=== PATIENT | female | born 1940 | race Caucasian/White ===

== ENCOUNTER 2022-08-01 14:58 | Inpatient (IN) | payer MEDICARE ==
[2022-08-01] MEDS ORDERED: ISOVUE-370 76%-LOCM 1 ML ONE (15:07)
[2022-08-01] MEDS ORDERED: Ipratropium/Albuterol 3 ML NEB ONE (15:32)
[2022-08-01 16:13] LABS: SARS-CoV-2 NAA Rapid Test Not Detected (NotDetected)
[2022-08-01 16:46] LABS: #Lymphocytes 0.9 thou/uL (1.20-3.40); #Monocytes 0.4 thou/uL (0.11-0.59); %Basophils 0.4 % (0.0-1.0); %Eosinophils 0.3 % (0.0-10.0); %Lymphocytes 12.8 % (21.0-51.0); %Neutrophils 81.5 % (42.0-75.0); Hemoglobin 14.9 g/dL (12.0-16.0); Mean Corpuscular HGB CONC 31.9 g/dL (32.0-36.0); Mean Corpuscular Hemoglobin 30.9 pg (27.0-31.0); Mean Corpuscular Volume 96.8 fl (78.0-98.0); Mean Platelet Volume 8.1 fL (7.4-10.4); Platelet Count 220 10x3/uL (130-400); RBC Distribution Width 12.4 % (11.5-14.5); Red Blood Cell (RBC) Count 4.82 mill/uL (4.20-5.40); White Blood Cell (WBC) Count 7.3 10x3/uL (4.8-10.8)
[2022-08-01 16:58] LABS: ALT (SGPT) 10 U/L (8-55); AST (SGOT) 14 U/L (5-34); Albumin 3.8 g/dL (3.4-4.8); Alkaline Phosphatase 110 U/L (40-110); Anion Gap 16 mmol/L (10-20); BUN (Urea Nitrogen) 20 mg/dL (9.8-20.1); Bilirubin, Total 0.9 mg/dL (0.2-1.2); CK (CPK) 19 U/L (29-168); Calc. Creatinine Clearance 0 mL/min (70-130); Calcium 10.5 mg/dL (7.8-10.44); Carbon Dioxide 25 mmol/L (23-31); Chloride 102 mmol/L (98-107); Estimated GFR 52; Globulin 3.7 g/dL (2.4-3.5); Glucose 137 mg/dL (83-110); Potassium 3.4 mmol/L (3.5-5.1); Protein, Total 7.5 g/dL (5.8-8.1); Sodium 140 mmol/L (136-145)
[2022-08-01 19:45] VITALS: BMI 15.0
[2022-08-01] MEDS ORDERED: Ipratropium/Albuterol 3 ML NEB NEB PRN (19:55)
[2022-08-01] MEDS ORDERED: Guaifenesin DM 100-10/5 ML UDCUP PO PRN (20:09)
[2022-08-01] MEDS ORDERED: Ondansetron PF 4 MG/2 ML Vial IVP PRN (20:09)
[2022-08-01] MEDS ORDERED: Acetaminophen 325 MG TAB PO PRN (20:09)
[2022-08-01] MEDS ORDERED: Senokot S 8.6-50 MG TAB PO PRN (20:09)
[2022-08-01] MEDS: methylPREDNISolone Sod Succ 40 MG VIAL IVP SCH (20:30)
[2022-08-01] MEDS: Sodium Chloride 0.9% 1,000 ML IV SCH (20:36)
[2022-08-01] MEDS: Nicotine 14 MG PATCH TD SCH (20:38)
[2022-08-01] MEDS: Famotidine 20 MG TAB PO SCH (20:54)
[2022-08-01] MEDS: Ipratropium/Albuterol 3 ML NEB NEB SCH (23:07)
[2022-08-01] MEDS ORDERED: methylPREDNISolone Sod Succ 40 MG VIAL IVP SCH (23:59)
[2022-08-02] MEDS: methylPREDNISolone Sod Succ 40 MG VIAL IVP SCH ×3 (02:14→17:05)
[2022-08-02] MEDS: Ipratropium/Albuterol 3 ML NEB NEB SCH ×5 (03:46→19:04)
[2022-08-02] MEDS ORDERED: Ziprasidone 20 MG VIAL ONE (05:30)
[2022-08-02] MEDS ORDERED: Sterile Water 10 ML VIAL FS PRN ×2 (05:45→11:00)
[2022-08-02] MEDS: Sterile Water 10 ML ONE ×2 (05:53→06:10)
[2022-08-02] MEDS ORDERED: Ziprasidone 20 MG VIAL IM SCH ×2 (06:00→10:30)
[2022-08-02 06:15] LABS: #Lymphocytes 0.3 thou/uL (1.20-3.40); #Monocytes 0.1 thou/uL (0.11-0.59); #Neutrophils 7.9 thou/uL (1.40-6.50); %Eosinophils 0.1 % (0.0-10.0); %Lymphocytes 3.2 % (21.0-51.0); %Monocytes 1.4 % (0.0-10.0); %Neutrophils 95.3 % (42.0-75.0); Hemoglobin 12.3 g/dL (12.0-16.0); Mean Corpuscular HGB CONC 31.7 g/dL (32.0-36.0); Mean Corpuscular Hemoglobin 30.3 pg (27.0-31.0); Mean Corpuscular Volume 95.6 fl (78.0-98.0); Mean Platelet Volume 7.6 fL (7.4-10.4); Platelet Count 221 10x3/uL (130-400); RBC Distribution Width 12.1 % (11.5-14.5); Red Blood Cell (RBC) Count 4.07 mill/uL (4.20-5.40); White Blood Cell (WBC) Count 8.3 10x3/uL (4.8-10.8)
[2022-08-02 06:20] LABS: Hemoglobin A1c 5.3 % (4.0-6.0)
[2022-08-02 06:31] LABS: Anion Gap 12 mmol/L (10-20); BUN (Urea Nitrogen) 20 mg/dL (9.8-20.1); Calc. Creatinine Clearance 36 mL/min (70-130); Carbon Dioxide 24 mmol/L (23-31); Chloride 105 mmol/L (98-107); Estimated GFR 73; Glucose 149 mg/dL (83-110); Potassium 3.2 mmol/L (3.5-5.1); Sodium 138 mmol/L (136-145)
[2022-08-02 06:51] LABS: CEA, Serum 3.96 ng/mL (< or = 5.0); Thyroid Stimulating Hormone 0.2232 uIU/mL (0.35-4.94)
[2022-08-02] MEDS: Bupropion 150 MG SR TAB PO SCH (08:51)
[2022-08-02] MEDS ORDERED: Lorazepam 2 MG/ML VIAL SLOW IVP PRN (10:18)
[2022-08-02] MEDS ORDERED: Senokot S 8.6-50 MG TAB PO PRN (11:15)
[2022-08-02] MEDS: Potassium Chloride 20 MEQ TAB PO SCH (17:05)
[2022-08-02] MEDS: Nicotine 14 MG PATCH TD SCH (20:17)
[2022-08-02] MEDS: Famotidine 20 MG TAB PO SCH (20:17)
[2022-08-02 20:52] LABS: Bacteria/HPF None Seen HPF (None Seen); Bilirubin Negative (Negative); Blood, Urine Trace (Negative); Clarity Clear (Clear); Glucose, Urine (Dipstick) Normal (Negative); Ketone, Urine Negative (Negative); Leukocyte Negative Leu/uL (Negative); Nitrite Negative (Negative); Protein, Urine (Dipstick) 10 mg/dL (Neg-Trace); RBC/HPF 0-3 HPF (0-3); Specific Gravity, Urine 1.029 (1.002-1.036); Urobilinogen Normal mg/dL (Less than 2); WBC/HPF 0-3 HPF (0-3); pH, Urine 5.5 (5.0-9.0)
[2022-08-02] MEDS: Lorazepam 2 MG/ML VIAL SLOW IVP PRN (21:17)
[2022-08-03] MEDS: Ipratropium/Albuterol 3 ML NEB NEB SCH ×6 (00:33→18:45)
[2022-08-03] MEDS: Sodium Chloride 0.9% 1,000 ML IV SCH ×4 (01:14→20:27)
[2022-08-03] MEDS: methylPREDNISolone Sod Succ 40 MG VIAL IVP SCH ×2 (01:15→08:47)
[2022-08-03] MEDS: Potassium Chloride 20 MEQ TAB PO SCH ×3 (08:46→16:08)
[2022-08-03] MEDS: Bupropion 150 MG SR TAB PO SCH ×2 (08:46→08:52)
[2022-08-03] MEDS: Ziprasidone 20 MG VIAL IM SCH (08:51)
[2022-08-03] MEDS ORDERED: Sterile Water 10 ML VIAL FS PRN (09:00)
[2022-08-03 09:19] LABS: Anion Gap 10 mmol/L (10-20); BUN (Urea Nitrogen) 27 mg/dL (9.8-20.1); Calc. Creatinine Clearance 34 mL/min (70-130); Calcium 10.7 mg/dL (7.8-10.44); Carbon Dioxide 26 mmol/L (23-31); Chloride 111 mmol/L (98-107); Estimated GFR 68; Glucose 93 mg/dL (83-110); Potassium 4.3 mmol/L (3.5-5.1); Sodium 143 mmol/L (136-145)
[2022-08-03] MEDS: Lorazepam 2 MG/ML VIAL SLOW IVP PRN ×2 (15:34→22:49)
[2022-08-03] MEDS: Nicotine 14 MG PATCH TD SCH (20:27)
[2022-08-04] MEDS: Ipratropium/Albuterol 3 ML NEB NEB SCH ×7 (00:19→23:42)
[2022-08-04] MEDS: Sodium Chloride 0.9% 1,000 ML IV SCH ×3 (04:40→16:55)
[2022-08-04 08:28] LABS: Anion Gap 11 mmol/L (10-20); BUN (Urea Nitrogen) 25 mg/dL (9.8-20.1); Calc. Creatinine Clearance 41 mL/min (70-130); Calcium 10.1 mg/dL (7.8-10.44); Carbon Dioxide 22 mmol/L (23-31); Chloride 113 mmol/L (98-107); Estimated GFR 84; Glucose 77 mg/dL (83-110); Potassium 4.1 mmol/L (3.5-5.1); Sodium 142 mmol/L (136-145)
[2022-08-04] MEDS ORDERED: Pantoprazole 40 MG VIAL IVP SCH (09:00)
[2022-08-04] MEDS ORDERED: Megestrol Acetate 800 MG/20 ML UDCUP PO SCH (09:00)
[2022-08-04] MEDS ORDERED: Megestrol Acetate 400 MG/10 ML UDCUP PO SCH (09:00)
[2022-08-04] MEDS: Potassium Chloride 20 MEQ TAB PO SCH ×2 (09:06→16:13)
[2022-08-04] MEDS: Bupropion 150 MG SR TAB PO SCH (09:06)
[2022-08-04] MEDS: Ziprasidone 20 MG VIAL IM SCH (09:38)
[2022-08-04] MEDS: Lorazepam 2 MG/ML VIAL SLOW IVP PRN ×2 (18:11→20:41)
[2022-08-04] MEDS: Nicotine 14 MG PATCH TD SCH (20:44)
[2022-08-05] MEDS: Ipratropium/Albuterol 3 ML NEB NEB SCH ×3 (03:18→11:55)
[2022-08-05 04:27] VITALS: TEMP 97.7
[2022-08-05] MEDS: Sodium Chloride 0.9% 1,000 ML IV SCH ×2 (05:25→09:32)
[2022-08-05 07:49] VITALS: BP 139/70
[2022-08-05] MEDS ORDERED: Morphine 2 MG/ML VIAL SLOW IVP PRN (08:11)
[2022-08-05] MEDS ORDERED: Morphine 10 MG/0.5 ML ORAL SYRINGE SL PRN (08:11)
[2022-08-05] MEDS: Potassium Chloride 20 MEQ TAB PO SCH (09:27)
[2022-08-05] MEDS: Bupropion 150 MG SR TAB PO SCH (09:28)
[2022-08-05] MEDS: Ziprasidone 20 MG VIAL IM SCH (09:28)
[2022-08-05] MEDS: Lorazepam 2 MG/ML VIAL SLOW IVP PRN (11:28)
== END 2022-08-05 12:55 | disposition hospice, home (50) | DRG 180 ==
LOC: ERS 14:58 → T4-A 17:53
PROVIDERS: ADMIT Specialist; ATTEND Specialist
DX: C34.31 Malignant neoplasm of lower lobe, right bronchus or lung (principal); Z66 Do not resuscitate; Z51.5 Encounter for palliative care; Z20.822 Contact with and (suspected) exposure to COVID-19; E43 Unspecified severe protein-calorie malnutrition; F03.911 Unspecified dementia, unspecified severity, with agitation; J44.1 Chronic obstructive pulmonary disease with (acute) exacerbation; F03.94 Unspecified dementia, unspecified severity, with anxiety; Z68.1 Body mass index [BMI] 19.9 or less, adult; I25.10 Atherosclerotic heart disease of native coronary artery without angina pectoris; I10 Essential (primary) hypertension; F17.210 Nicotine dependence, cigarettes, uncomplicated; E87.6 Hypokalemia; R62.7 Adult failure to thrive; Z85.89 Personal history of malignant neoplasm of other organs and systems; Z79.899 Other long term (current) drug therapy
CPT/HCPCS: 36415; 71045; 71260; 80048; 80053; 81001; 82378; 82550; 83036; 83605; 83880; 84443; 84484; 85025; 86304; 87040; 93005; 94640; 94644; C9113; J1650; J2060; J2920; J3486; J7050; J7611; J7620; Q9966; U0002